=== PATIENT | female | born 1995 | race Caucasian/White ===

== ENCOUNTER 2019-07-09 15:42 | Outpatient (CLI) | payer OTHER ==
--- NOTE | 2019-07-10 07:28 | CT ---
CT IAC/TEMPORAL BONE WITHOUT CONTRAST: HISTORY: Bilateral hearing loss, left greater than right. COMPARISON: None. FINDINGS: The visualized brain parenchyma is unremarkable. Bilateral ocular lenses are appropriately located. Both globes are intact. Retrobulbar fat is preserv ed. Symmetric attenuation of the optic nerves and ocular rectus muscles. Visualized aerodigestive tract is unremarkable. Adequate aeration in the visualized paranasal sinuses. Right IAC/temporal bone: The internal auditory canal, cochlea, vestibule and semicircular canals have an appropriate appearance and configuration. Vestibular aqueduct is not enlarged. Adequate aeration of the middle ear. Ossicular chain is intact. Stapedial footplate appropriately located. Seg ment tympani and tegmen mastoideum are preserved. Scutum is sharp. No abnormal hypodensities in Prussak's space. Adequate aeration of the mastoid air cells. Mastoid osseous septae are maintained. T ympanic membrane and external auditory canal are unremarkable Left IAC/temporal bone: The internal auditory canal, cochlea, vestibule and semicircular canals have an appropriate appearance and configuration. Vestibular aqueduct is not enlarged. Adequate aeration of the middle ear. Ossicular chain is intact. Stapedial footplate is appropriately located. Tegmen ty mpani and tegmen mastoideum are preserved. Scutum is sharp. No abnormal hypodensities in Prussak's space. Adequate aeration of the mastoid air cells. Mastoid osseous septae are maintained. Hepatic mem brane and external auditory canals are unremarkable. IMPRESSION: Unremarkable CT internal auditory canal/temporal bones. Transcribed Date/Time: 07/10/2019 7:41 AM
== END 2019-07-09 15:43 | disposition home or self-care (01) ==
LOC: SCSCT 15:42 → BICCT 15:43
PROVIDERS: ATTEND Student in an Organized Health Care Education/Training Program
DX: H90.8 Mixed conductive and sensorineural hearing loss, unspecified (principal)
CPT/HCPCS: 70480